=== PATIENT | male | born 1950 | race Caucasian/White ===

== ENCOUNTER → 2017-04-17 | Outpatient (CLI) | payer MEDICARE, OTHER | LOC: RT 10:35 | DX: R00.2 Palpitations (principal) ==

== ENCOUNTER → 2017-05-14 | Outpatient (CLI) | payer MEDICARE, OTHER ==
--- NOTE | 2017-05-14 18:38 | RADIOLOGY REPORT PS360 ---
CT CALCIUM SCORING W/3D CLINICAL INDICATION: CHEST PAIN,ABNORMAL EKG, SMOKER, PVC'S, SVT, SNORING ORDERING PHYSICIAN: RIGOBERTO MURDOCK MD PATIENT AGE: 66 years COMPARISON: None FINDINGS: The total coronary artery calcium score is 344 indicating a moderate plaque burden with high cardiovascular disease risk. IMPRESSION: High cardiovascular disease risk
--- NOTE | 2017-05-14 20:24 | RADIOLOGY REPORT PS360 ---
PROCEDURE: 2-D M-mode and color Doppler study INDICATIONS FOR THE TEST: Chest pain COPD Heart Murmur Tobacco Smoking+ Palpitations Fatigue Syncope Edema Hypertension Diabetes Mellitus Rheumatic Fever SOB [place] Obesity Hyperlipidemia Family History HD+ Additional History PATIENT INFORMATION HEIGHT:68 WEIGHT:195 GENDER: Male B/P:157/90 2-D/M-MODE INTERPRETATION: 2-D MEASUREMENTS OBSERVED VALUES IN CMS Right Ventricular Dimension (RVDd) 1.9 Interventricular Septum (Thickness)(IVsd) 1.1 Left Ventricular Internal Dimensions(LVIDd) 5.4 Left Ventricular Posterior Wall (Thickness)(LVPWd) 0.9 Aortic Root 2.8 Aortic Cusp Separation 2.1 Left Atrial Dimensions (LAD) 4.1 2D 1. Left atrium is mildly enlarged, left ventricle is normal size, there is mild concentric left ventricular hypertrophy present, visually estimated ejection fraction 50% with no obvious regional wall motion abnormality. 2. The right atrium and right ventricle are normal size and contractility. 3. The aortic valve is minimally thickened and fibrosed. 4. The mitral and tricuspid valve leaflets are minimally thickened. 5. The pulmonic valve is poorly visualized. 6. No significant pericardial effusion. DOPPLER INTERROGATION: Doppler interrogation of the aortic, mitral and tricuspid valvular presence of moderate mitral and mild tricuspid regurgitation, tricuspid regurgitant jet velocity insufficient for calculation of the right ventricular systolic pressure, grade 1 diastolic dysfunction seen with tissue Doppler evidence of raised left atrial pressure. CONCLUSION: 1. Mildly enlarged left atrium, normal left ventricular size, mild concentric left ventricular hypertrophy, visually estimated ejection fraction 50% with no obvious regional wall motion abnormality, grade 1 diastolic dysfunction seen with tissue Doppler evidence of raised left atrial pressure. 2. Moderate mitral and mild tricuspid regurgitation 3. No significant pericardial effusion noted.
--- NOTE | 2017-05-15 09:41 | RADIOLOGY REPORT PS360 ---
CARDIOLITE SPECT MYOCARDIAL PERFUSION SCAN, REST AND STRESS: EXERCISE STRESS [facility] REVIEW QGS EF AND WALL MOTION EVALUATION: QPS - PERFUSION EVALUATION HISTORY: BRADYCARDIA, PVC'S, SVT DOSE: 10.71 mCi technetium 99m mibi intravenously at rest followed by 32.9 mCi technetium 99m mibi following the intravenous ministration of 0.4 mg of Lexiscan. Resting blood pressure is 157/90. Stress blood pressure 145/72. FINDINGS: Ejection fraction is calculated to be 45. Stress images reveal moderate to severe left ventricular dilatation with reduced activity in the anterior apical wall and moderately decreased in the inferior apical wall. Rest images reveal better activity in the apex was worsening activity in the inferior wall. Images calculated ejection fraction 45% with apical hypokinesis. IMPRESSION: High risk abnormal stress test with severe left ventricular dilatation and mid anterior apical ischemia with reverse redistribution in the inferior apical wall. Regional wall motion abnormality with reduced ejection fraction
--- NOTE | 2017-05-15 09:41 | RADIOLOGY REPORT PS360 ---
CARDIOLITE SPECT MYOCARDIAL PERFUSION SCAN, REST AND STRESS: EXERCISE STRESS [facility] REVIEW QGS EF AND WALL MOTION EVALUATION: QPS - PERFUSION EVALUATION HISTORY: BRADYCARDIA, PVC'S, SVT DOSE: 10.71 mCi technetium 99m mibi intravenously at rest followed by 32.9 mCi technetium 99m mibi following the intravenous ministration of 0.4 mg of Lexiscan. Resting blood pressure is 157/90. Stress blood pressure 145/72. FINDINGS: Ejection fraction is calculated to be 45. Stress images reveal moderate to severe left ventricular dilatation with reduced activity in the anterior apical wall and moderately decreased in the inferior apical wall. Rest images reveal better activity in the apex was worsening activity in the inferior wall. Images calculated ejection fraction 45% with apical hypokinesis. IMPRESSION: High risk abnormal stress test with severe left ventricular dilatation and mid anterior apical ischemia with reverse redistribution in the inferior apical wall. Regional wall motion abnormality with reduced ejection fraction
== END ==
LOC: RAD 06:10
DX: I49.3 Ventricular premature depolarization (principal); I47.1 Supraventricular tachycardia; R00.1 Bradycardia, unspecified; R06.83 Snoring; G47.33 Obstructive sleep apnea (adult) (pediatric); Z87.828 Personal history of other (healed) physical injury and trauma; R06.02 Shortness of breath
CPT/HCPCS: A9502; J2785

== ENCOUNTER → 2017-05-28 | Day surgery (SDC) | payer MEDICARE, OTHER ==
[2017-05-28 08:06] LABS: LYMPH # 1.8 K/mm3 (0.7-4.5); LYMPH % 38.5 % (10-50)
[2017-05-28 08:10] LABS: BUN 16 mg/dL (7-18)
[2017-05-28 08:11] LABS: GFR (ESTIMATED) 84 ML/MIN (>60)
--- NOTE | 2017-05-28 13:52 | RADIOLOGY REPORT PS360 ---
CARDIAC CATHETERIZATION DATE OF CATHETERIZATION:05/28/2017 11:11 AM PROCEDURES: 1. Left heart catheterization 2. Left ventriculogram 3. Selective coronary angiogram INDICATION FOR TEST: 1. Abnormal Myoview 2. Risk factors for coronary artery disease 3. Angina pectoris Informed consent was obtained prior to the procedure. COMPLICATIONS: None ESTIMATED BLOOD LOSS: Less than 10 ml. TECHNIQUE: One percent lidocaine used to anesthetize the right anterior aspect of the wrist. The right radial artery was accessed via the Seldinger technique. A 6 Japanese sheath was placed in the right radial artery. 2.5 mg of verapamil, 800 mcg of nitroglycerin and 5000 U Heparin were given through the arterial sheath. The trap catheter was also used to perform left heart catheterization and left ventriculography. At the end of the procedure the patient was transferred to the post-op holding area in stable condition for arterial sheath removal. ANGIOGRAPHIC RESULTS: 1. The left main artery 2. The left anterior descending artery has proximal eccentric 30-40% stenosis with mid vessel 30% stenoses and additional 40% with distal 40 and 50% stenoses 3. The circumflex artery is nondominant and has proximal concentric 30-40% stenosis with mid vessel 20% stenosis 4. The right coronary artery is a large dominant vessel and has 10-20% proximal stenoses distal 20% nonflow limiting stenoses and a 30-40% proximal large posterior descending artery stenosis 5. The RAMOS ventriculogram reveals normal 55% 6. The left ventricular end-diastolic pressure mildly elevated at 20 mmHg IMPRESSION: 1. Moderate nonflow limiting coronary artery disease as described above 2. Normal ejection fraction 3. Mildly elevated LVEDP PLAN: 1. Risk factor modification 2. Medical management
[2017-05-28 15:07] VITALS: BP 107/68
== END ==
LOC: CATHLAB 07:28
PROVIDERS: Internal Medicine
PROC: B2111ZZ Fluoroscopy of Multiple Coronary Arteries using Low Osmolar Contrast (ICD-10-PCS; 2017-05-28)
PROC: B2151ZZ Fluoroscopy of Left Heart using Low Osmolar Contrast (ICD-10-PCS; 2017-05-28)
PROC: 4A023N7 Measurement of Cardiac Sampling and Pressure, Left Heart, Percutaneous Approach (ICD-10-PCS; principal; 2017-05-28 11:00)
DX: I25.119 Atherosclerotic heart disease of native coronary artery with unspecified angina pectoris (principal); R94.39 Abnormal result of other cardiovascular function study; Z72.0 Tobacco use; I49.3 Ventricular premature depolarization; R00.1 Bradycardia, unspecified; G47.33 Obstructive sleep apnea (adult) (pediatric)
CPT/HCPCS: C1725; C1769; J1644; Q9967

== ENCOUNTER → 2017-06-05 | Outpatient (CLI) | payer MEDICARE, OTHER ==
--- NOTE | 2017-06-06 10:38 | RADIOLOGY REPORT PS360 ---
MRI-C-SPINE W/O, MRI-3D RENDERING/MYELOGRAM HISTORY: Loss of strength in arms and hands with left extremity numbness CERVICAL DISC DISORDER ORDERING PHYSICIAN: James Lopez MD PATIENT AGE: 66 years COMPARISON: None TECHNIQUE: Standard multiplanar multiecho sequences are performed without contrast. 3-D MIP and myelographic images are also rendered and reviewed FINDINGS: There is normal alignment. The craniocervical junction has an unremarkable appearance. There are some nonspecific increased signal intensity within the central aspect of arnie. C2-C3: Mild/moderate left foraminal narrowing and mild right foraminal narrowing from uncovertebral hypertrophy and facet hypertrophy. C3-C4: Degenerative disc disease with posterior ridging of the vertebral body with canal stenosis along with facet and ligamentum flavum hypertrophy with severe bilateral foraminal narrowing. C4-C5: Degenerative disc disease. There is bulging disc along with a broad-based central disc protrusion/herniation slightly eccentric toward the left with resultant severe canal stenosis of 6 mm. There is impingement upon and flattening upon the central and left aspect of the spinal cord. There is severe bilateral foraminal narrowing. C5-C6: Degenerative disc disease with bulging disc along with facet and ligamentum flavum hypertrophy with canal stenosis of 8 mm. Severe left and moderate right foraminal narrowing C6-C7: Degenerative disc disease with bulging disc with canal stenosis and mild bilateral foraminal narrowing C7-T1: Unremarkable. IMPRESSION: 1. Multilevel cervical spondylosis with degenerative disc disease, bulging disc with disc osteophyte complexes, and uncovertebral and facet hypertrophic change with resultant canal stenosis and lateral recess and foraminal narrowing. Please see above for detailed description at each level. 2. Bulging disc at C5-C6 along with a broad-based central disc protrusion/herniation slightly eccentric toward the left with resultant severe canal stenosis of 6 mm. There is impingement upon and flattening upon the central and left aspect of the spinal cord with severe bilateral foraminal narrowing.
== END ==
LOC: RAD 13:41
DX: M50.30 Other cervical disc degeneration, unspecified cervical region (principal)

== ENCOUNTER → 2017-06-07 | Outpatient (CLI) | payer MEDICARE, OTHER ==
[2017-06-07 10:21] LABS: BILIRUBIN, INDIRECT 0.45 mg/dL (0-0.9); BUN 19 mg/dL (7-18)
[2017-06-07 10:40] LABS: GFR (ESTIMATED) 67 ML/MIN (>60)
== END ==
LOC: LAB 07:42
PROVIDERS: Internal Medicine Cardiovascular Disease
DX: I25.10 Atherosclerotic heart disease of native coronary artery without angina pectoris (principal); I10 Essential (primary) hypertension; E78.5 Hyperlipidemia, unspecified; I27.20 Pulmonary hypertension, unspecified; I50.30 Unspecified diastolic (congestive) heart failure; R53.83 Other fatigue; R06.83 Snoring; G47.33 Obstructive sleep apnea (adult) (pediatric); G47.10 Hypersomnia, unspecified

== ENCOUNTER → 2017-06-14 | Outpatient (CLI) | payer MEDICARE, OTHER | LOC: SL 20:08 | DX: I10 Essential (primary) hypertension (principal); G47.10 Hypersomnia, unspecified; R06.83 Snoring ==